=== PATIENT | male | born 1965 | race Caucasian/White ===

== ENCOUNTER 2017-01-13 13:14 | Emergency (ER) | payer OTHER | END 2017-01-13 14:15 | disposition home or self-care (01) | LOC: FER 13:14 | DX: S01.01XA Laceration without foreign body of scalp, initial encounter (principal); Z87.442 Personal history of urinary calculi; F17.210 Nicotine dependence, cigarettes, uncomplicated; Z23 Encounter for immunization; W17.89XA Other fall from one level to another, initial encounter; W22.8XXA Striking against or struck by other objects, initial encounter; Y92.009 Unspecified place in unspecified non-institutional (private) residence as the place of occurrence of the external cause | CPT/HCPCS: 99283 ==